=== PATIENT | male | born 1945 | race Two or more races ===

== ENCOUNTER 2019-04-26 12:00 | Inpatient (IN) ==
[2019-04-26 12:20] VITALS: BMI 26.1
--- NOTE | 2019-04-26 13:05 | DR.EXTPAIN ---
HPI - Time seen Time seen: 13:01 - Complaint/Symptoms Chief Complaint Doctor Comments: Patient state he has been passing out at home for the past two days. States he gets diaphoretic, weak, sweaty and pass out. States he thought his sugar was low and he eat some candy and he feels better. states he is taking Novolin N 28 units and he thinks it peak at the wrong time and his sugar gets low and he passes out. states similar episode happened today and two days ago where he passed out and ate candy and felt better. He states he is a diabetic and had By-pass 2000 and stents x2 this year. States he thought he had the flu for seven days now and he has been taking Amoxicillin 875mg bid and continues to cough. He has asthma and wheeze at times and uses albuterol for SOB. He was taking insulin 28 units bid but he stopped the evening dose because he felt it was to much. states his glucose usually run around 280 to 300 range. He denies tobacco or alcohol use. States he do not have a local doctor. States he wants to switch his insulin to a long acting insulin like Lantus. Chief Complaint:: patient stated he has been passing out at home and he thinks the insulin may be wrong or he thinks he is having TIAs. pt also thinks he has the flu he has been taking amoxcillian 875 but he still fells bad. - Nurses notes reviewed Nurses Notes Review: Yes - Source History Provided: Patient - Mode of arrival Mode of Arrival: Ambulatory - Timing Onset of Chief Complaint: 04/24/19 - Context History of: Arthritis - Associated signs and symptoms Associated Signs and Symptoms: Weakness, Fever, Cough PMH - PMH Past Medical History: Yes Past Medical History: Diabetes, [place] Past Surgical History: Yes Surgical History: Angioplasty/Stents - Family History History of Family Medical Conditions: No - Social History Does patient currently use any type of tobacco product: No Have you used tobacco products in the last 12 months: No Type of Tobacco Use: None Does any household member use tobacco: No Alcohol Use: None Do you use any recreational Drugs:: No Lives With: Family Lives Where: Home - infectious screening In the last 2 months have you had wt loss of >10#?: NO Have you had fever, night sweats or hemotysis?: No Have you traveled outside the country in the last 6 months?: No Isolation: Standard ROS - Review of Systems Constitutional: No Symptoms Reported, Fever, Weakness Eyes: No Symptoms Reported ENTM: No Symptoms Reported Respiratoy: No Symptoms Reported, Productive Cough (yellow sputum), Short of Breath Cardiovascular: No Symptoms Reported. negative: See HPI, Chest Pain, Edema, Palpitations, Syncope, Cyanosis, Skin Mottling, Other Gastrointestinal/Abdominal: No Symptoms Reported Genitourinary: No Symptoms Reported Neurological: No Symptoms Reported Musculoskeletal: No Symptoms Reported Integumentary: No Symptoms Reported Hematologic/Lymphatic: No Symptoms Reported Endocrine: No Symptoms Reported Psychiatric: No Symptoms Reported. negative: See HPI, Anxiety, Depression, Hallucinations, Excessive crying, Suicidal, Other PE - General Limitations: No Limitations General Appearance: Alert, In Distress (slight) - Head Head Exam: Normal Inspection, Atraumatic, Normocephalic - Eyes Eye exam: Normal Appearance, PERRL, EOMI. negative: Scleral Icterus - ENT ENT Exam: Normal Exam, Normal Oropharynx, Normal External Ear Exam, Mucous Membranes Moist, TM's Normal Bilaterally - Neck Neck Exam: Normal Inspection, Full ROM, Trachea Midline - Chest Chest Inspection: Normal Inspection, Symmetric Chest Wall Rise - Respiratory Respiratory Exam: Prolonged Expiratory Phase Respiratory Exam: Right Rales (right basilar rales), Lower Rales - Cardiovascular Cardiovascular Exam: Regular Rate, Normal Rhythm, Normal Heart Sounds, Systolic Murmur - Abdominal Exam Abdominal Exam: Normal Inspection, Normal Bowel Sounds, Soft. negative: Distention, Tenderness, Guarding, Rebound, Rigidity, Dimnished Bowel Sounds, Hyperactive Bowel Sounds, Hypoactive Bowel Sounds, Organomegaly, Trauma, Incision, Ascites, Mass, Bruit, Pulsatile Mass, Hernia, Other Abdominal Tenderness: negative: RUQ, RLQ, LUQ, LLQ, Epigastrium, Suprapubic, Diffuse, Mild, Moderate, Severe, Other - Extremities Extremities Exam: Normal Inspection, Full ROM, Normal Capillary Refill. negative: Tenderness, Edema, Joint Swelling, Calf Tenderness, Other - Upper Extremities Shoulder Exam: Normal Inspection, Full ROM. negative: Tenderness, Swelling, Abrasion, Laceration, Ecchymosis, Deformity, Crepitus, Dislocation, Erythema, Tenderness over AC Joint, Other Arm Exam: Normal Inspection, Full ROM. negative: Tenderness, Swelling, Abrasion, Laceration, Ecchymosis, Deformity, Crepitus, Erythema, Other Elbow Exam: Normal Inspection, Full ROM. negative: Tenderness, Swelling, Abrasion, Laceration, Ecchymosis, Deformity, Crepitus, Dislocation, Erythema, Effusion, Pain w/ pronation, Pain w/ Spuination, Tenderness over Radial Head, Other Forearm Exam: Normal Inspection, Full ROM. negative: Tenderness, Swelling, Abrasion, Laceration, Ecchymosis, Deformity, Crepitus, Erythema, Dislocation, Other Hand Exam: Normal Inspection, Full ROM. negative: Tenderness, Swelling, Abrasion, Laceration, Ecchymosis, Skin Avulsion, Deformity, Crepitus, Erythema, Dislocation, Amputation, Nail Avulsion, Subungual Hematoma, Other Neuromotor Exam: Normal Exam Neurosensory Exam: Normal Exam Hand Tendon Exam: Flexor Digitorium Profundus (Location) (normal) Upper Ext. Vascular Exam: Capillary Refill (normal) - Lower Extremities Hip/Pelvis Exam: Normal Inspection, Full ROM Upper Leg Exam: Normal Inspection, Full ROM Knee Exam: Normal Inspection, Full ROM, Crepitus. negative: Tenderness, Swelling, Abrasion, Laceration, Ecchymosis, Deformity, Dislocation, Erythema, Effusion, Anterior Drawer Sign, Posterior Draw Sign, Pain with Valgus, Laxity with Valgus, Pain with Varus, Knee Extension Intact, Other Lower Leg Exam: Normal Inspection, Full ROM Ankle Exam: Normal Inspection, Full ROM. negative: Tenderness, Swelling, Abrasion, Laceration, Ecchymosis, Deformity, Crepitus, Dislocation, Erythema, Tenderness over talofibular lig, Anterior Draw Sign, Other Foot/Toe Exam: Normal Inspection, Full ROM. negative: Tenderness, Swelling, Abrasion, Laceration, Ecchymosis, Deformity, Crepitus, Dislocation, Erythema, Amputation, Puncture Wound, Foreign Body, Calcaneal Tenderness, Nail Avulsion, Other Neurovascular/Tendon Exam: Normal Capillary Refill Gait Exam: Observed and Normal - Back Back Exam: Normal Inspection, Full ROM - Neurological Neurological Exam: Alert, Oriented X3, CN II-XII Intact, Normal Gait, Reflexes Normal - Psychiatric Psychiatric Exam: Normal Affect, Normal Mood - Skin Skin Exam: Warm, Dry, Intact, Normal Color Type of Lesion: negative: Rash, Abscess, Laceration, Foreign Body, Bite/Sting, Abrasion, Other Distribution: negative: Generalized, Involves Palms/Soles, Head, Face, Neck, Thorax, Chest, Back, Abdomen, Genitals, LUE, LLE, RUE, RLE, Other Description: negative: Size, Tenderness, Erythematous, Swelling, Macular, Papular, Vesicular, Blisters, Cofluent, Bullous, Petechial, Purpuric, Urticarial, Crusting, Discharge, Fluctuant, Indurated, Other - Vital Signs Vitals: Temperature 99.9 F Pulse Rate 83 Respiratory Rate 24 Blood Pressure 123/62 O2 Sat by Pulse Oximetry 93 Course - Reevaluation 1st: Improved - Consultation Called: 16:09 Call Returned: 16:09 (Dr. Zavala to admit) - Education/Counseling Education/Counseling: Patient, Family Educated On: Treatment, Diagnosis, Needs for Follow Up ROR - Labs Reviewed Laboratory Results Reviewed?: Yes (all labs and x-ray results reviewed and discussed with patient) Result Diagrams: 04/26/19 12:45 04/26/19 12:45 - Other Results Comments: CT head: No acute intracranial process identified. - XRAY XRAY Interpreted by: Radiologist (CT head: No acute intracranial process identified), Both (CTA chest: No visible pulmonary embolism. Interstitial lung disease or infection.) XRAY Findings: CXR: Postsurgical findings. Mild bibasal findings consistent with atelect - EKG Rate: 85 [place]: Normal Rhythm: NSR Hypertrophy: LAE ST: Old, Inf, Infarct - Labs Reviewed Laboratory: WBC 6.5 X10^3/uL (3.6-10.0) 04/26/19 12:45 RBC 4.34 X10^6/uL (4.7-6.0) L 04/26/19 12:45 Hgb 13.6 g/dL (13.5-18.0) 04/26/19 12:45 Hct 39.7 % (42.0-54.0) L 04/26/19 12:45 MCV 91.6 fL (80.0-100.0) 04/26/19 12:45 MCH 31.4 pg (27.0-34.0) 04/26/19 12:45 MCHC 34.3 g/dL (33.0-35.0) 04/26/19 12:45 RDW 13.5 % (11.6-16.5) 04/26/19 12:45 Plt Count 194 X10^3/uL (150.0-450.0) 04/26/19 12:45 MPV 8.4 fL (7.4-11.0) 04/26/19 12:45 Neut % (Auto) 75.6 % (42.0-75.0) H 04/26/19 12:45 Lymph % (Auto) 15.5 % (21.0-51.0) L 04/26/19 12:45 [place] % (Auto) 7.6 % (0.0-13.0) 04/26/19 12:45 Eos % (Auto) 0.7 % (0.9-2.9) L 04/26/19 12:45 Baso % (Auto) 0.6 % (0.2-1.0) 04/26/19 12:45 Neut # (Auto) 4.9 x10^3/uL (2.2-4.8) H 04/26/19 12:45 Lymph # (Auto) 1.0 X10^3/uL (1.3-2.9) L 04/26/19 12:45 [place] # (Auto) 0.5 x10^3/uL (0.3-0.8) 04/26/19 12:45 Eos # (Auto) 0.0 x10^3/uL (0.0-0.2) 04/26/19 12:45 Baso # (Auto) 0.0 X10^3/uL (0.0-0.1) 04/26/19 12:45 Absolute Nucleated RBC 0.0 /100WBC 04/26/19 12:45 PT 13.7 SECONDS (11.8-14.3) 04/26/19 12:45 INR Target Range - 04/26/19 12:45 INR 1.09 (0.8-1.3) 04/26/19 12:45 APTT 34.0 SECONDS (22.9-36.5) 04/26/19 12:45 PTT Comment - 04/26/19 12:45 D-Dimer 739 ng/mL (0-400) H* 04/26/19 12:45 Sodium 130 mmol/L (136-145) L 04/26/19 12:45 Corrected Sodium 134 mmol/L (136-145) L 04/26/19 12:45 Potassium 4.2 mmol/L (3.5-5.1) 04/26/19 12:45 Chloride 98 mmol/L (98-107) 04/26/19 12:45 Carbon Dioxide 25.2 mmol/L (21-32) 04/26/19 12:45 BUN 16 mg/dL (7-18) 04/26/19 12:45 Creatinine 1.16 mg/dL (0.70-1.30) 04/26/19 12:45 Est GFR (MDRD) Af Amer > 60 (>60) 04/26/19 12:45 Est GFR (MDRD) Non-Af > 60 (>60) 04/26/19 12:45 Glucose 246 mg/dL (65-99) H 04/26/19 12:45 Lactic Acid 1.1 mmol/L (0.4-2.0) 04/26/19 12:45 Calcium 8.0 mg/dL (8.5-10.1) L 04/26/19 12:45 Corrected Calcium 9.0 mg/dL (8.5-10.1) 04/26/19 12:45 Magnesium 1.9 mg/dL (1.7-2.9) 04/26/19 12:45 Total Bilirubin 1.00 mg/dL (0.2-1.0) 04/26/19 12:45 AST 44 Units/L (15-37) H 04/26/19 12:45 ALT 34 Units/L (12-78) 04/26/19 12:45 Alkaline Phosphatase 71 Units/L (46-116) 04/26/19 12:45 Creatine Kinase 480 Units/L (39-308) H 04/26/19 12:45 CK-MB (CK-2) 2.1 ng/mL (0-4.0) 04/26/19 12:45 CK/CKMB % Calc 0.4 % (<4) 04/26/19 12:45 Troponin I 0.07 ng/mL (0-1.5) 04/26/19 12:45 Total Protein 7.2 g/dL (6.4-8.2) 04/26/19 12:45 Albumin 2.8 g/dL (3.4-5.0) L 04/26/19 12:45 Globulin 4.4 g/dL (2.5-4.5) 04/26/19 12:45 Albumin/Globulin Ratio 0.6 Ratio (1.1-2.1) L 04/26/19 12:45 Opioid - Opioid Risk Tool Age (Erasmo box if 16-45): No History of Preadolescent Sexual Abuse: No Total: 0 Total Score Risk Category: Low Risk - Diagnosis Discharge Problem: Hyponatremia, Pulmonary fibrosis, History of asthma Syncope Qualifiers: Encounter type: initial encounter Pneumonia Qualifiers: Aspiration pneumonia type: unspecified Diabetes mellitus Qualifiers: Diabetes mellitus type: type 1 Coronary artery disease Qualifiers: Coronary Disease-Associated Artery/Lesion type: bypass graft, autologous vein - Discharge Plan Disposition: ADMITTED INPATIENT Condition: Stable - Follow ups/Referrals Follow ups/Referrals: NFD,None [Primary Care Provider] - 3 days - Instructions
[2019-04-26 13:09] LABS: BASOPHILS % (AUTO) 0.6 % (0.2-1.0); EOSINOPHILS % (AUTO) 0.7 % (0.9-2.9); HEMATOCRIT 39.7 % (42.0-54.0); HEMOGLOBIN 13.6 g/dL (13.5-18.0); LYMPHOCYTES % (AUTO) 15.5 % (21.0-51.0); MEAN CORPUSCULAR HEMOGLOBIN 31.4 pg (27.0-34.0); MEAN CORPUSCULAR HGB CONC 34.3 g/dL (33.0-35.0); MEAN CORPUSCULAR VOLUME 91.6 fL (80.0-100.0); MEAN PLATELET VOLUME 8.4 fL (7.4-11.0); MONOCYTES # (AUTO) 0.5 x10^3/uL (0.3-0.8); MONOCYTES % (AUTO) 7.6 % (0.0-13.0); NEUTROPHILS # (AUTO) 4.9 x10^3/uL (2.2-4.8); NEUTROPHILS % (AUTO) 75.6 % (42.0-75.0); PLATELET COUNT 194 X10^3/uL (150.0-450.0); RED BLOOD COUNT 4.34 X10^6/uL (4.7-6.0); RED CELL DISTRIBUTION WIDTH 13.5 % (11.6-16.5); WHITE BLOOD COUNT 6.5 X10^3/uL (3.6-10.0)
[2019-04-26 13:27] LABS: BLOOD UREA NITROGEN 16 mg/dL (7-18); CARBON DIOXIDE 25.2 mmol/L (21-32); CHLORIDE 98 mmol/L (98-107); COR NA(FOR HYPERGLY) 134 mmol/L (136-145); CREATININE 1.16 mg/dL (0.70-1.30); SODIUM 130 mmol/L (136-145); TROPONIN I 0.07 ng/mL (0-1.5); eGFR NON BLACK RACES > 60 (>60)
[2019-04-26] MEDS: NS 1000 ML 1,000 ML IV SCH (13:28)
[2019-04-26 13:32] LABS: ALANINE AMINOTRANSFERASE 34 Units/L (12-78); ALBUMIN 2.8 g/dL (3.4-5.0); ALKALINE PHOSPHATASE 71 Units/L (46-116); ASPARTATE AMINO TRANSFERASE 44 Units/L (15-37); CKMB % 0.4 % (<4); CREATINE KINASE 480 Units/L (39-308); CREATINE KINASE MB 2.1 ng/mL (0-4.0); MAGNESIUM 1.9 mg/dL (1.7-2.9); TOTAL PROTEIN 7.2 g/dL (6.4-8.2)
--- NOTE | 2019-04-26 13:35 | RAD ---
Examination: Portable AP chestHistory: Chest painFindings: The heart is not significantly enlarged. Sternal wires are present. There are increased indistinct interstitial densities in the lung bases which may represent minimal atelectasis or fibrosis. No pulmonary edema, pneumothorax or consolidation seen.Impression: Postsurgical findings. Mild bibasal findings consistent with subsegmental atelectasis or fibrosis.Reported By:
--- NOTE | 2019-04-26 13:37 | CT ---
HISTORY: Altered mental statusStudy: CT brain without contrastComparison: NoneTechnique:Multiple axial images of the brain were obtained from the skull base to the vertex without administration of IV contrast.Dose reduction techniques including Automated Exposure Control (AEC) and adjustment of mA and kV were utlized.Findings: No visible intracranial hemorrhage or overt acute infarct. remote left caudate lacunar infarct. No extra-axial fluid collections are seen. No ventriculomegaly or midline shift. No visible mass or mass effect. Included paranasal sinuses and mastoid air cells are aerated. Orbital contents appear intact. Skull base and calvarium appear intact.IMPRESSION: 1. No acute intracranial process identified.Reported By:
[2019-04-26 13:38] LABS: LACTIC ACID 1.1 mmol/L (0.4-2.0)
[2019-04-26] MEDS ORDERED: ROCEPHIN VIAL 1 GRAM 1 G in NS 100 ML IV + SPIKE MINIBAG* 100 ML IV ONE (14:17)
[2019-04-26] MEDS ORDERED: ROCEPHIN VIAL 1 GRAM ONE (14:24)
[2019-04-26] MEDS ORDERED: NS 100 ML IV 100 ML IV ONE (14:24)
--- NOTE | 2019-04-26 14:39 | CT ---
HISTORY: Shortness of breathStudy: CT chest with contrastComparison: Chest radiograph same dayTechnique: Multiple axial images of the chest were obtained from the thoracic inlet to the upper abdomen after the administration of IV contrast.Dose reduction techniques including Automated Exposure Control (AEC) and adjustment of mA and kV were utlized.Findings:Satisfactory opacification of the pulmonary arteries without visible pulmonary artery filling defect. Lungs show diffuse peripheral interstitial thickening/fibrosis in appear grossly clear centrally. Sequelae of CABG. Mildly prominent subcarinal 12 mm lymph node with scattered calcification. No other visible lymphadenopathy. No pleural effusion, no pericardial effusion, or pneumothorax. Limited views upper abdomen grossly unremarkable. Scattered atherosclerosis. No acute osseous finding.IMPRESSION: 1. No visible pulmonary embolism.2. Evidence of interstitial lung disease or atypical infection. Additional findings as above.Reported By:
[2019-04-26] MEDS ORDERED: TUSSIONEX PENNKINETIC SUSP PO PRN (16:12)
[2019-04-26] MEDS ORDERED: NS 1/2 1000 ML IV 1,000 ML IV SCH (17:00)
[2019-04-26 17:01] LABS: CKMB % 0.4 % (<4); TROPONIN I 0.08 ng/mL (0-1.5)
--- NOTE | 2019-04-26 17:03 | DR.H&P ---
H&P History & Physical for Day of: H&P Date: 04/26/19 Chief Complaint Chief Complaint: productive cough, dizziness Allergies Allergies Allergy/AdvReac Type Severity Reaction Status Date / Time No Known Drug Allergies Allergy Verified 04/26/19 12:12 History of Present Illness History of Present Illness: Patient is a 73y/o male with a PMH of Type 2 DM, CABG, CAD s/p PCI x 2 this year, HTN and HLD presents with one week onset of productive cough, runny nose and body aches. He has had these flu like symptoms after being exposed to his daughter who had the flu. He has been taking Augmentin. He also reports dizziness and passing out spells x 2 due to hypoglycemia. He takes Novolin N 28 units BID and reports having low blood sugars at night around 1am. He passed out twice in the last 2 days, symptoms resolved with eating candy. reports generalized weakness and decreased appetite. Patient sees cardiology, recent PCI in Jan, no significant valvular disease. Past Medical History Past Medical History: Coronary Artery Disease, Diabetes, Dyslipidemia, Hypertension and [place] Past Surgical History Surgical History: Angioplasty/Stents and CABG/Valve Surgery Social History Does patient currently use any type of tobacco product: No Have you used tobacco products in the last 12 months: No Type of Tobacco Use: None Does any household member use tobacco: No Alcohol Use: None Drug Use: Prescription Drugs Prescription drug monitoring program results: PDMP was not reviewed Medications Home Medications: No Known Drug Allergies Allergy (Verified 04/26/19 12:12) CONTINUE taking the following medications albuterol sulfate [ProAir HFA] 2 inh INHALATION QID PRN 04/26/19 [History] amoxicillin-pot clavulanate [Augmentin] 1 tab PO DAILY 04/26/19 [History] aspirin [Aspir-Low] 81 mg PO DAILY 04/26/19 [History] insulin NPH isoph U-100 human [Novolin N NPH U-100 Insulin] 30 unit SUBCUT HS 04/26/19 [History] losartan 25 mg PO DAILY 04/26/19 [History] rosuvastatin 10 mg PO DAILY 04/26/19 [History] ticagrelor [Brilinta] 90 mg PO BID 04/26/19 [History] Labs Result Diagrams: 04/26/19 12:45 04/26/19 12:45 Labs: Laboratory WBC 6.5 X10^3/uL (3.6-10.0) 04/26/19 12:45 RBC 4.34 X10^6/uL (4.7-6.0) L 04/26/19 12:45 Hgb 13.6 g/dL (13.5-18.0) 04/26/19 12:45 Hct 39.7 % (42.0-54.0) L 04/26/19 12:45 MCV 91.6 fL (80.0-100.0) 04/26/19 12:45 MCH 31.4 pg (27.0-34.0) 04/26/19 12:45 MCHC 34.3 g/dL (33.0-35.0) 04/26/19 12:45 RDW 13.5 % (11.6-16.5) 04/26/19 12:45 Plt Count 194 X10^3/uL (150.0-450.0) 04/26/19 12:45 MPV 8.4 fL (7.4-11.0) 04/26/19 12:45 Neut % (Auto) 75.6 % (42.0-75.0) H 04/26/19 12:45 Lymph % (Auto) 15.5 % (21.0-51.0) L 04/26/19 12:45 [place] % (Auto) 7.6 % (0.0-13.0) 04/26/19 12:45 Eos % (Auto) 0.7 % (0.9-2.9) L 04/26/19 12:45 Baso % (Auto) 0.6 % (0.2-1.0) 04/26/19 12:45 Neut # (Auto) 4.9 x10^3/uL (2.2-4.8) H 04/26/19 12:45 Lymph # (Auto) 1.0 X10^3/uL (1.3-2.9) L 04/26/19 12:45 [place] # (Auto) 0.5 x10^3/uL (0.3-0.8) 04/26/19 12:45 Eos # (Auto) 0.0 x10^3/uL (0.0-0.2) 04/26/19 12:45 Baso # (Auto) 0.0 X10^3/uL (0.0-0.1) 04/26/19 12:45 Absolute Nucleated RBC 0.0 /100WBC 04/26/19 12:45 PT 13.7 SECONDS (11.8-14.3) 04/26/19 12:45 INR Target Range - 04/26/19 12:45 INR 1.09 (0.8-1.3) 04/26/19 12:45 APTT 34.0 SECONDS (22.9-36.5) 04/26/19 12:45 PTT Comment - 04/26/19 12:45 D-Dimer 739 ng/mL (0-400) H* 04/26/19 12:45 Sodium 130 mmol/L (136-145) L 04/26/19 12:45 Corrected Sodium 134 mmol/L (136-145) L 04/26/19 12:45 Potassium 4.2 mmol/L (3.5-5.1) 04/26/19 12:45 Chloride 98 mmol/L (98-107) 04/26/19 12:45 Carbon Dioxide 25.2 mmol/L (21-32) 04/26/19 12:45 BUN 16 mg/dL (7-18) 04/26/19 12:45 Creatinine 1.16 mg/dL (0.70-1.30) 04/26/19 12:45 Est GFR (MDRD) Af Amer > 60 (>60) 04/26/19 12:45 Est GFR (MDRD) Non-Af > 60 (>60) 04/26/19 12:45 Glucose 246 mg/dL (65-99) H 04/26/19 12:45 Lactic Acid 1.1 mmol/L (0.4-2.0) 04/26/19 12:45 Calcium 8.0 mg/dL (8.5-10.1) L 04/26/19 12:45 Corrected Calcium 9.0 mg/dL (8.5-10.1) 04/26/19 12:45 Magnesium 1.9 mg/dL (1.7-2.9) 04/26/19 12:45 Total Bilirubin 1.00 mg/dL (0.2-1.0) 04/26/19 12:45 AST 44 Units/L (15-37) H 04/26/19 12:45 ALT 34 Units/L (12-78) 04/26/19 12:45 Alkaline Phosphatase 71 Units/L (46-116) 04/26/19 12:45 Creatine Kinase 480 Units/L (39-308) H 04/26/19 12:45 CK-MB (CK-2) 2.1 ng/mL (0-4.0) 04/26/19 12:45 CK/CKMB % Calc 0.4 % (<4) 04/26/19 12:45 Troponin I 0.07 ng/mL (0-1.5) 04/26/19 12:45 Total Protein 7.2 g/dL (6.4-8.2) 04/26/19 12:45 Albumin 2.8 g/dL (3.4-5.0) L 04/26/19 12:45 Globulin 4.4 g/dL (2.5-4.5) 04/26/19 12:45 Albumin/Globulin Ratio 0.6 Ratio (1.1-2.1) L 04/26/19 12:45 Review of Systems Constitutional: Fever, Weakness and Malaise Eyes: No Symptoms Reported ENT: Nose Discharge and Nose Congestion Respiratory: Cough and Sputum Cardiovascular: No Symptoms Reported Gastrointestinal: No Symptoms Reported Genitourinary: No Symptoms Reported Musculoskeletal: No Symptoms Reported Skin: No Symptoms Reported Neurological: No Symptoms Reported Physical Exam Vital Signs: Temperature 99.9 F Pulse Rate 83 Respiratory Rate 24 Blood Pressure 123/62 O2 Sat by Pulse Oximetry 93 Oriented: Normal Eyes: Normal Respiratory: RLL Rhonchi and LLL Rhonchi Cardiovascular: Normal Auscultation: Bowel Sounds: Normal Palpation: Normal Tenderness: Normal Skin: Normal Musculoskeletal: Normal Psychiatric: Normal Mood Description: Calm Affect: Normal Speech Pattern: Clear and Appropriate Assessment/Plan (1) Hypoglycemia: Status: Acute Plan: having syncopal spells, resolved with eating candy. Currently on Novolin N BID Will start lantus 10 units qHS, SSI, monitor finger sticks closely. (2) Syncope: Qualifiers: Syncope type: unspecified Qualified Code(s): R55 - Syncope and collapse Status: Acute Plan: likely due to hypoglycemia, patient on Novolin N BID Ct-head negative Trop x 1: 0.07, repeating pending, continue cardiac monitoring Start lantus 10 units qHS, SSI (3) Pneumonia: Qualifiers: Laterality: left Lung location: lower lobe of lung Pneumonia type: due to unspecified organism Qualified Code(s): J18.9 - Pneumonia, unspecified organism Status: Acute Plan: CXR suggestive of atelectasis/fibrosis. CTPE negative for PE -received Rocephin x 1, continue Levaquin, duonebs, incentive spirometry (4) Hyponatremia: Status: Acute Plan: dehydration, continue gentle hydration. Follow AM labs, TSH (5) Diabetes mellitus: Qualifiers: Diabetes mellitus type: type 2 Diabetes mellitus senior care insulin use: with extermination inspector use Diabetes mellitus complication status: without complication Qualified Code(s): E11.9 - Type 2 diabetes mellitus without complications; Z79.4 - terminal press operator (current) use of insulin Status: Acute Plan: A1C ordered (6) History of asthma: Status: Acute Plan: duonebs prn (7) Coronary artery disease: Qualifiers: Coronary Disease-Associated Artery/Lesion type: bypass graft, autologous vein Associated angina: without angina Qualified Code(s): I25.810 - Atherosclerosis of coronary artery bypass graft(s) without angina pectoris Status: Acute Plan: s/p PCI, continue asa, brilinta, statin and losartan Patient stopped taking metoprolol. Review H&P Reviewed: Yes Patient was examined?: Yes
[2019-04-26 17:19] LABS: ALANINE AMINOTRANSFERASE 32 Units/L (12-78); ALBUMIN 2.7 g/dL (3.4-5.0); ALKALINE PHOSPHATASE 68 Units/L (46-116); ASPARTATE AMINO TRANSFERASE 42 Units/L (15-37); BLOOD UREA NITROGEN 15 mg/dL (7-18); CARBON DIOXIDE 26.7 mmol/L (21-32); CHLORIDE 99 mmol/L (98-107); COR NA(FOR HYPERGLY) 133 mmol/L (136-145); CREATININE 1.16 mg/dL (0.70-1.30); SODIUM 132 mmol/L (136-145); eGFR NON BLACK RACES > 60 (>60)
[2019-04-26 17:22] LABS: TSH (3RD GENERATION) 1.216 uIU/mL (0.358-3.74)
[2019-04-26] MEDS ORDERED: SALINE 3% 15 ML NEB TX NEB ONE (17:29)
[2019-04-26] MEDS ORDERED: BUTT CREAM (COMPOUND) TOP PRN (17:46)
[2019-04-26] MEDS: DUONEB 0.5 MG/3 MG NEB SCH (18:41)
[2019-04-26] MEDS: ROBITUSSIN DM PO SCH ×2 (18:53→20:21)
[2019-04-26] MEDS: LEVAQUIN PREMIX IV 750 MG 750 MG/150 ML BAG IV SCH (18:54)
[2019-04-26] MEDS: SNACK - Diabetic Appropriate PO SCH (20:10)
[2019-04-26] MEDS: BRILINTA PO SCH (20:20)
[2019-04-26] MEDS: CRESTOR TAB 10 MG PO SCH (20:20)
[2019-04-26] MEDS ORDERED: LANTUS SC SCH (21:00)
[2019-04-26 21:30] LABS: CKMB % 0.5 % (<4); CREATINE KINASE MB 2.5 ng/mL (0-4.0); TROPONIN I 0.08 ng/mL (0-1.5)
[2019-04-27] MEDS: DUONEB 0.5 MG/3 MG NEB SCH ×5 (01:39→17:29)
[2019-04-27] MEDS ORDERED: TYLENOL 325 MG TAB PO PRN (04:21)
[2019-04-27] MEDS: NS 1000 ML 1,000 ML IV SCH ×3 (04:28→19:06)
[2019-04-27] MEDS ORDERED: TYLENOL 325 MG TAB PO ONE (04:45)
[2019-04-27] MEDS: HumuLIN R SC PRN ×4 (05:42→20:57)
[2019-04-27 06:05] LABS: BASOPHILS % (AUTO) 0.5 % (0.2-1.0); EOSINOPHILS # (AUTO) 0.1 x10^3/uL (0.0-0.2); EOSINOPHILS % (AUTO) 2.3 % (0.9-2.9); HEMATOCRIT 38.3 % (42.0-54.0); HEMOGLOBIN 13.2 g/dL (13.5-18.0); LYMPHOCYTES # (AUTO) 1.5 X10^3/uL (1.3-2.9); LYMPHOCYTES % (AUTO) 23.6 % (21.0-51.0); MEAN CORPUSCULAR HEMOGLOBIN 31.3 pg (27.0-34.0); MEAN CORPUSCULAR HGB CONC 34.5 g/dL (33.0-35.0); MEAN CORPUSCULAR VOLUME 90.8 fL (80.0-100.0); MEAN PLATELET VOLUME 8.3 fL (7.4-11.0); MONOCYTES # (AUTO) 0.5 x10^3/uL (0.3-0.8); MONOCYTES % (AUTO) 7.9 % (0.0-13.0); NEUTROPHILS # (AUTO) 4.1 x10^3/uL (2.2-4.8); NEUTROPHILS % (AUTO) 65.7 % (42.0-75.0); PLATELET COUNT 172 X10^3/uL (150.0-450.0); RED BLOOD COUNT 4.22 X10^6/uL (4.7-6.0); RED CELL DISTRIBUTION WIDTH 13.5 % (11.6-16.5); WHITE BLOOD COUNT 6.2 X10^3/uL (3.6-10.0)
--- NOTE | 2019-04-27 07:50 | RAD ---
HISTORY: Pneumonia.Study: PA and lateral chest.Comparison: Chest x-ray dated April 26, 2019. Findings:The trachea is midline. The cardiac silhouette is unremarkable. Postsurgical changes status post median sternotomy. Chronic emphysematous and interstitial lung changes. Bibasilar scarring versus atelectasis. No obvious focal consolidation, pleural effusion, or pneumothorax. The bony thorax is unremarkable. IMPRESSION: No acute cardiopulmonary disease.Reported By:
[2019-04-27 08:09] LABS: BLOOD UREA NITROGEN 13 mg/dL (7-18); CALCIUM 8.1 mg/dL (8.5-10.1); CHLORIDE 100 mmol/L (98-107); COR NA(FOR HYPERGLY) 134 mmol/L (136-145); CREATININE 1.05 mg/dL (0.70-1.30); SODIUM 131 mmol/L (136-145); eGFR NON BLACK RACES > 60 (>60)
[2019-04-27] MEDS ORDERED: LANTUS SC SCH (09:00)
[2019-04-27] MEDS ORDERED: ROCEPHIN VIAL 1 GRAM 1 G in NS 100 ML IV + SPIKE MINIBAG* 100 ML IV SCH (09:00)
[2019-04-27] MEDS: VSL#3 PO SCH (09:45)
[2019-04-27] MEDS: ASPIRIN EC 81 MG PO SCH (09:45)
[2019-04-27] MEDS: COZAAR PO SCH (09:46)
[2019-04-27] MEDS: BRILINTA PO SCH ×2 (09:47→20:45)
[2019-04-27] MEDS: ROBITUSSIN DM PO SCH ×6 (09:47→20:46)
[2019-04-27] MEDS: LEVAQUIN PREMIX IV 750 MG 750 MG/150 ML BAG IV SCH (09:48)
[2019-04-27] MEDS ORDERED: LANTUS SC ONE (09:57)
--- NOTE | 2019-04-27 13:54 | PCM.PROG ---
Progress Note Progress Note for Day of Date of Exam: 04/27/19 Subjective Subjective: Pt is feeling a little better this morning. He did spike a fever of 101F early this morning. BloodCx, Flu pcr ordered. Denies dysuria or increased urinary frequency. No other acute events overnight. Past Medical Family Social History Past Med/Fam/Surg Hx: No changes since H&P Allergies: Allergies No Known Drug Allergies Allergy (Verified 04/26/19 12:12) Review of Systems ROS: No change since H&P Vital Signs and I&O's Vital Signs: Temperature 98.7 F Pulse Rate [Left Radial] 88 Pulse Rate 85 Respiratory Rate 18 Blood Pressure [Right Arm] 120/58 Blood Pressure 159/72 O2 Sat by Pulse Oximetry 99 Intake and Output: Intake & Output 04/24/19 04/25/19 04/26/19 04/27/19 23:59 23:59 23:59 23:59 Intake Total 1560 / 1560 50 / 50 Balance 1560 / 1560 50 / 50 Physical Exam Oriented: Normal Eyes: Normal Cardiovascular: Normal Auscultation: Bowel Sounds: Normal Tenderness: Normal Skin: Normal Musculoskeletal: Normal Psychiatric: Normal Mood Description: Calm Affect: Normal Speech Pattern: Clear and Appropriate Laboratory and Diagnostics Result Diagrams: 04/27/19 05:25 04/27/19 05:25 Labs: Laboratory WBC 6.2 X10^3/uL (3.6-10.0) 04/27/19 05:25 RBC 4.22 X10^6/uL (4.7-6.0) L 04/27/19 05:25 Hgb 13.2 g/dL (13.5-18.0) L 04/27/19 05:25 Hct 38.3 % (42.0-54.0) L 04/27/19 05:25 MCV 90.8 fL (80.0-100.0) 04/27/19 05:25 MCH 31.3 pg (27.0-34.0) 04/27/19 05:25 MCHC 34.5 g/dL (33.0-35.0) 04/27/19 05:25 RDW 13.5 % (11.6-16.5) 04/27/19 05:25 Plt Count 172 X10^3/uL (150.0-450.0) 04/27/19 05:25 MPV 8.3 fL (7.4-11.0) 04/27/19 05:25 Neut % (Auto) 65.7 % (42.0-75.0) 04/27/19 05:25 Lymph % (Auto) 23.6 % (21.0-51.0) 04/27/19 05:25 [place] % (Auto) 7.9 % (0.0-13.0) 04/27/19 05:25 Eos % (Auto) 2.3 % (0.9-2.9) 04/27/19 05:25 Baso % (Auto) 0.5 % (0.2-1.0) 04/27/19 05:25 Neut # (Auto) 4.1 x10^3/uL (2.2-4.8) 04/27/19 05:25 Lymph # (Auto) 1.5 X10^3/uL (1.3-2.9) 04/27/19 05:25 [place] # (Auto) 0.5 x10^3/uL (0.3-0.8) 04/27/19 05:25 Eos # (Auto) 0.1 x10^3/uL (0.0-0.2) 04/27/19 05:25 Baso # (Auto) 0.0 X10^3/uL (0.0-0.1) 04/27/19 05:25 Absolute Nucleated RBC 0.1 /100WBC 04/27/19 05:25 PT 13.7 SECONDS (11.8-14.3) 04/26/19 12:45 INR Target Range - 04/26/19 12:45 INR 1.09 (0.8-1.3) 04/26/19 12:45 APTT 34.0 SECONDS (22.9-36.5) 04/26/19 12:45 PTT Comment - 04/26/19 12:45 D-Dimer 739 ng/mL (0-400) H* 04/26/19 12:45 Sodium 131 mmol/L (136-145) L 04/27/19 05:25 Corrected Sodium 134 mmol/L (136-145) L 04/27/19 05:25 Potassium 4.2 mmol/L (3.5-5.1) 04/27/19 05:25 Chloride 100 mmol/L (98-107) 04/27/19 05:25 Carbon Dioxide 25.0 mmol/L (21-32) 04/27/19 05:25 BUN 13 mg/dL (7-18) 04/27/19 05:25 Creatinine 1.05 mg/dL (0.70-1.30) 04/27/19 05:25 Est GFR (MDRD) Af Amer > 60 (>60) 04/27/19 05:25 Est GFR (MDRD) Non-Af > 60 (>60) 04/27/19 05:25 Glucose 239 mg/dL (65-99) H 04/27/19 05:25 Hemoglobin A1c 9.0 % 04/26/19 12:45 Lactic Acid 1.1 mmol/L (0.4-2.0) 04/26/19 12:45 Calcium 8.1 mg/dL (8.5-10.1) L 04/27/19 05:25 Corrected Calcium 9.0 mg/dL (8.5-10.1) 04/26/19 16:06 Magnesium 1.9 mg/dL (1.7-2.9) 04/26/19 12:45 Total Bilirubin 0.80 mg/dL (0.2-1.0) 04/26/19 16:06 AST 42 Units/L (15-37) H 04/26/19 16:06 ALT 32 Units/L (12-78) 04/26/19 16:06 Alkaline Phosphatase 68 Units/L (46-116) 04/26/19 16:06 Creatine Kinase 499 Units/L (39-308) H 04/26/19 21:00 CK-MB (CK-2) 2.5 ng/mL (0-4.0) 04/26/19 21:00 CK/CKMB % Calc 0.5 % (<4) 04/26/19 21:00 Troponin I 0.08 ng/mL (0-1.5) 04/26/19 21:00 Total Protein 7.0 g/dL (6.4-8.2) 04/26/19 16:06 Albumin 2.7 g/dL (3.4-5.0) L 04/26/19 16:06 Globulin 4.3 g/dL (2.5-4.5) 04/26/19 16:06 Albumin/Globulin Ratio 0.6 Ratio (1.1-2.1) L 04/26/19 16:06 TSH 3rd Generation 1.216 uIU/mL (0.358-3.74) 04/26/19 12:45 Plan (1) Hypoglycemia: Status: Acute Plan: Having syncopal spells, resolved with eating candy. Was taking Novolin N BID at home d/c on admission. Start Lantus 10 units, SSI, monitor finger sticks closely. (2) Syncope: Status: Acute Qualifiers: Syncope type: unspecified Qualified Code(s): R55 - Syncope and collapse Plan: likely due to hypoglycemia, patient on Novolin N BID Ct-head negative Trop x 1: 0.07, repeating pending, continue cardiac monitoring Start lantus 10 units qHS, SSI (3) Pneumonia: Status: Acute Qualifiers: Laterality: left Lung location: lower lobe of lung Pneumonia type: due to unspecified organism Qualified Code(s): J18.9 - Pneumonia, unspecified organism Plan: CXR suggestive of atelectasis/fibrosis. CTPE negative for PE -received Rocephin x 1, continue Levaquin, duonebs, incentive spirometry (4) Hyponatremia: Status: Acute Plan: dehydration, improving w/ gentle hydration. TSH wnl (5) Diabetes mellitus: Status: Acute Qualifiers: Diabetes mellitus complication status: without complication Diabetes mellitus retirement insulin use: with intermission coordinator use Diabetes mellitus type: type 2 Qualified Code(s): E11.9 - Type 2 diabetes mellitus without complications; Z79.4 - intermediate (current) use of insulin Plan: A1C 9 (6) History of asthma: Status: Acute Plan: duonebs prn (7) Coronary artery disease: Status: Acute Qualifiers: Associated angina: without angina Coronary Disease-Associated Artery/Lesion type: bypass graft, autologous vein Qualified Code(s): I25.810 - Atherosclerosis of coronary artery bypass graft(s) without angina pectoris Plan: s/p PCI, continue asa, brilinta, statin and losartan Patient stopped taking metoprolol.
[2019-04-27] MEDS: TAMIFLU PO SCH ×2 (14:20→20:45)
[2019-04-27] MEDS: CRESTOR TAB 10 MG PO SCH (20:45)
[2019-04-27] MEDS: SNACK - Diabetic Appropriate PO SCH (20:57)
[2019-04-28] MEDS: DUONEB 0.5 MG/3 MG NEB SCH ×2 (01:14→05:07)
[2019-04-28] MEDS: NS 1000 ML 1,000 ML IV SCH (02:41)
[2019-04-28] MEDS ORDERED: COLACE CAP 100 MG PO PRN (04:15)
[2019-04-28 06:26] LABS: BLOOD UREA NITROGEN 10 mg/dL (7-18); CALCIUM 7.7 mg/dL (8.5-10.1); CARBON DIOXIDE 23.9 mmol/L (21-32); CHLORIDE 103 mmol/L (98-107); COR NA(FOR HYPERGLY) 136 mmol/L (136-145); CREATININE 0.94 mg/dL (0.70-1.30); SODIUM 135 mmol/L (136-145); eGFR NON BLACK RACES > 60 (>60)
[2019-04-28 06:31] LABS: BASOPHILS % (AUTO) 0.3 % (0.2-1.0); EOSINOPHILS # (AUTO) 0.1 x10^3/uL (0.0-0.2); EOSINOPHILS % (AUTO) 1.9 % (0.9-2.9); HEMATOCRIT 36.5 % (42.0-54.0); HEMOGLOBIN 12.4 g/dL (13.5-18.0); LYMPHOCYTES # (AUTO) 1.5 X10^3/uL (1.3-2.9); LYMPHOCYTES % (AUTO) 21.4 % (21.0-51.0); MEAN CORPUSCULAR HEMOGLOBIN 31.2 pg (27.0-34.0); MEAN CORPUSCULAR VOLUME 91.8 fL (80.0-100.0); MEAN PLATELET VOLUME 7.9 fL (7.4-11.0); MONOCYTES # (AUTO) 0.4 x10^3/uL (0.3-0.8); MONOCYTES % (AUTO) 6.3 % (0.0-13.0); NEUTROPHILS % (AUTO) 70.1 % (42.0-75.0); PLATELET COUNT 169 X10^3/uL (150.0-450.0); RED BLOOD COUNT 3.97 X10^6/uL (4.7-6.0); RED CELL DISTRIBUTION WIDTH 13.4 % (11.6-16.5); WHITE BLOOD COUNT 7.1 X10^3/uL (3.6-10.0)
[2019-04-28] MEDS: TAMIFLU PO SCH (08:23)
[2019-04-28] MEDS: ROBITUSSIN DM PO SCH (08:23)
[2019-04-28] MEDS: LEVAQUIN PREMIX IV 750 MG 750 MG/150 ML BAG IV SCH (08:23)
[2019-04-28] MEDS: COZAAR PO SCH (08:23)
[2019-04-28] MEDS: VSL#3 PO SCH (08:24)
[2019-04-28] MEDS: BRILINTA PO SCH (08:24)
[2019-04-28] MEDS: ASPIRIN EC 81 MG PO SCH (08:25)
--- NOTE | 2019-04-28 08:59 | PCM.PROG ---
Progress Note Progress Note for Day of Date of Exam: 04/28/19 Subjective Subjective: Pt is feeling the same as yesterday. He had an elevated temperature early this morning of 100.2F. He tested positive for flu and was started on Tamiflu. Will add pulmicort. His glucose was still elevated yesterday. Increased Lantus to 15 units and added metformin. Pt was also constipated, added miralax and Colace. Will give milk of mag x1 dose. Will monitor sugars today. Continue Levaquin for underlying pneumonia. Past Medical Family Social History Past Med/Fam/Surg Hx: No changes since H&P Allergies: Allergies No Known Drug Allergies Allergy (Verified 04/26/19 12:12) Review of Systems ROS: No change since H&P Vital Signs and I&O's Vital Signs: Temperature 100.2 F Pulse Rate [Left Radial] 100 Pulse Rate 82 Respiratory Rate 20 Blood Pressure [Left Arm] 139/60 Blood Pressure [Right Arm] 139/63 Blood Pressure 159/72 O2 Sat by Pulse Oximetry 98 Intake and Output: Intake & Output 04/25/19 04/26/19 04/27/19 04/28/19 23:59 23:59 23:59 23:59 Intake Total 1560 / 1560 3449 / 3449 480 / 480 Output Total 1950 / 1950 700 / 700 Balance 1560 / 1560 1499 / 1499 -220 / -220 Physical Exam Oriented: Normal Eyes: Normal Cardiovascular: Normal Auscultation: Bowel Sounds: Normal Tenderness: Normal Skin: Normal Musculoskeletal: Normal Psychiatric: Normal Mood Description: Calm Affect: Normal Speech Pattern: Clear and Appropriate Laboratory and Diagnostics Result Diagrams: 04/28/19 06:09 04/28/19 06:09 Labs: 04/26/19 12:45 Blood Blood Culture - Preliminary Laboratory WBC 7.1 X10^3/uL (3.6-10.0) 04/28/19 06:09 RBC 3.97 X10^6/uL (4.7-6.0) L 04/28/19 06:09 Hgb 12.4 g/dL (13.5-18.0) L 04/28/19 06:09 Hct 36.5 % (42.0-54.0) L 04/28/19 06:09 MCV 91.8 fL (80.0-100.0) 04/28/19 06:09 MCH 31.2 pg (27.0-34.0) 04/28/19 06:09 MCHC 34.0 g/dL (33.0-35.0) 04/28/19 06:09 RDW 13.4 % (11.6-16.5) 04/28/19 06:09 Plt Count 169 X10^3/uL (150.0-450.0) 04/28/19 06:09 MPV 7.9 fL (7.4-11.0) 04/28/19 06:09 Neut % (Auto) 70.1 % (42.0-75.0) 04/28/19 06:09 Lymph % (Auto) 21.4 % (21.0-51.0) 04/28/19 06:09 [place] % (Auto) 6.3 % (0.0-13.0) 04/28/19 06:09 Eos % (Auto) 1.9 % (0.9-2.9) 04/28/19 06:09 Baso % (Auto) 0.3 % (0.2-1.0) 04/28/19 06:09 Neut # (Auto) 5.0 x10^3/uL (2.2-4.8) H 04/28/19 06:09 Lymph # (Auto) 1.5 X10^3/uL (1.3-2.9) 04/28/19 06:09 [place] # (Auto) 0.4 x10^3/uL (0.3-0.8) 04/28/19 06:09 Eos # (Auto) 0.1 x10^3/uL (0.0-0.2) 04/28/19 06:09 Baso # (Auto) 0.0 X10^3/uL (0.0-0.1) 04/28/19 06:09 Absolute Nucleated RBC 0.0 /100WBC 04/28/19 06:09 PT 13.7 SECONDS (11.8-14.3) 04/26/19 12:45 INR Target Range - 04/26/19 12:45 INR 1.09 (0.8-1.3) 04/26/19 12:45 APTT 34.0 SECONDS (22.9-36.5) 04/26/19 12:45 PTT Comment - 04/26/19 12:45 D-Dimer 739 ng/mL (0-400) H* 04/26/19 12:45 Sodium 135 mmol/L (136-145) L 04/28/19 06:09 Corrected Sodium 136 mmol/L (136-145) 04/28/19 06:09 Potassium 3.5 mmol/L (3.5-5.1) 04/28/19 06:09 Chloride 103 mmol/L (98-107) 04/28/19 06:09 Carbon Dioxide 23.9 mmol/L (21-32) 04/28/19 06:09 BUN 10 mg/dL (7-18) 04/28/19 06:09 Creatinine 0.94 mg/dL (0.70-1.30) 04/28/19 06:09 Est GFR (MDRD) Af Amer > 60 (>60) 04/28/19 06:09 Est GFR (MDRD) Non-Af > 60 (>60) 04/28/19 06:09 Glucose 136 mg/dL (65-99) H 04/28/19 06:09 Hemoglobin A1c 9.0 % 04/26/19 12:45 Lactic Acid 1.1 mmol/L (0.4-2.0) 04/26/19 12:45 Calcium 7.7 mg/dL (8.5-10.1) L 04/28/19 06:09 Corrected Calcium 9.0 mg/dL (8.5-10.1) 04/26/19 16:06 Magnesium 1.9 mg/dL (1.7-2.9) 04/26/19 12:45 Total Bilirubin 0.80 mg/dL (0.2-1.0) 04/26/19 16:06 AST 42 Units/L (15-37) H 04/26/19 16:06 ALT 32 Units/L (12-78) 04/26/19 16:06 Alkaline Phosphatase 68 Units/L (46-116) 04/26/19 16:06 Creatine Kinase 499 Units/L (39-308) H 04/26/19 21:00 CK-MB (CK-2) 2.5 ng/mL (0-4.0) 04/26/19 21:00 CK/CKMB % Calc 0.5 % (<4) 04/26/19 21:00 Troponin I 0.08 ng/mL (0-1.5) 04/26/19 21:00 Total Protein 7.0 g/dL (6.4-8.2) 04/26/19 16:06 Albumin 2.7 g/dL (3.4-5.0) L 04/26/19 16:06 Globulin 4.3 g/dL (2.5-4.5) 04/26/19 16:06 Albumin/Globulin Ratio 0.6 Ratio (1.1-2.1) L 04/26/19 16:06 TSH 3rd Generation 1.216 uIU/mL (0.358-3.74) 04/26/19 12:45 Influenza Type A (PCR) Negative (NEGATIVE) 04/27/19 13:11 Influenza Type B (PCR) Positive (NEGATIVE) A 04/27/19 13:11 Plan (1) Influenza B: Status: Acute Plan: Started Tamiflu(04/27/19) (2) Hypoglycemia: Status: Acute Plan: Lantus 15 units, SSI, monitor finger sticks closely. (3) Syncope: Status: Acute Qualifiers: Syncope type: unspecified Qualified Code(s): R55 - Syncope and collapse Plan: likely due to hypoglycemia, patient on Novolin N BID Ct-head negative Trop x 1: 0.07, repeating pending, continue cardiac monitoring Start lantus 10 units qHS, SSI (4) Pneumonia: Status: Acute Qualifiers: Laterality: left Lung location: lower lobe of lung Pneumonia type: due to unspecified organism Qualified Code(s): J18.9 - Pneumonia, unspecified organism Plan: CXR suggestive of atelectasis/fibrosis. CTPE negative for PE -received Rocephin x 1, continue Levaquin, duonebs, incentive spirometry (5) Hyponatremia: Status: Acute Plan: dehydration, improving w/ gentle hydration. TSH wnl (6) Diabetes mellitus: Status: Acute Qualifiers: Diabetes mellitus complication status: without complication Diabetes mellitus mcfp insulin use: with mcfp use Diabetes mellitus type: type 2 Qualified Code(s): E11.9 - Type 2 diabetes mellitus without complications; Z79.4 - half-way (current) use of insulin Plan: A1C 9 (7) History of asthma: Status: Acute Plan: keshia prn (8) Coronary artery disease: Status: Acute Qualifiers: Associated angina: without angina Coronary Disease-Associated Artery/Lesion type: bypass graft, autologous vein Qualified Code(s): I25.810 - Atherosclerosis of coronary artery bypass graft(s) without angina pectoris Plan: s/p PCI, continue asa, brilinta, statin and losartan Patient stopped taking metoprolol.
[2019-04-28] MEDS ORDERED: MILK OF MAGNESIA PO SCH (09:00)
[2019-04-28] MEDS ORDERED: PULMICORT NEB TX 0.5 MG NEB SCH (09:00)
[2019-04-28] MEDS ORDERED: LANTUS SC SCH (09:00)
[2019-04-28] MEDS: MIRALAX POWDER (1 DOSE 17 G) PO SCH ×2 (09:13)
[2019-04-28 11:04] VITALS: BP 117/57
--- NOTE | 2019-04-28 11:04 | W.DIS.FURT ---
Summary of Discharge Discharge Summary of Date Date of Exam: 04/28/19 Admission Date Date of Admission: 04/26/19 Admission Diagnosis Patient Problems (Updated 04/28/19 @ 08:56 by Benoit Zavala) Influenza B (Acute) J10.1 Hypoglycemia (Acute) E16.2 Syncope (Acute) R55 Pneumonia (Acute) J18.9 Diabetes mellitus (Acute) E11.9 Hyponatremia (Acute) E87.1 Pulmonary fibrosis (Acute) J84.10 History of asthma (Acute) Z87.09 Coronary artery disease (Acute) I25.10 Hospital Course: Pt is a 73y/o male with a PMH of Type 2 DM, CABG, CAD s/p PCI x 2 this year, HTN and HLD admitted after having dizziness and weakness. While inpatient he had flu like symptoms and fever, his CT chest commented on possible pneumonia and he was started on Levaquin. Flu pcr was positive for influenza B and he was started on Tamiflu. Pt was instructed to complete course of both medications on discharge. He also stated he was having "passing out" episodes at home which was attributed to hypoglycemia. He was taking Novolin N that was discontinued. While inpatient he was changed to Lantus with titration up to 15 units on discharge. Metformin was also started. On discharge patient vitals stable, physical exam unremarkable except for some crackles in lower lung bases that is resolving, pulse Ox >95%. He is instructed to monitor his blood glucose at home and follow up within pcp in 1 week. Vital Signs: Vital Signs (72 hours) 04/26/19 12:13 04/26/19 12:52 04/26/19 13:00 Temperature 99.9 F H Pulse Rate 91 H 84 85 Pulse Rate [Left Radial] Respiratory Rate 19 21 22 Blood Pressure 115/57 114/62 Blood Pressure [Left Arm] Blood Pressure [Right Arm] O2 Sat by Pulse Oximetry 96 97 99 04/26/19 13:16 04/26/19 13:30 04/26/19 13:45 Temperature Pulse Rate 80 83 78 Pulse Rate [Left Radial] Respiratory Rate 24 23 Blood Pressure 123/62 Blood Pressure [Left Arm] Blood Pressure [Right Arm] O2 Sat by Pulse Oximetry 96 93 L 94 L 04/26/19 14:11 04/26/19 14:15 04/26/19 14:30 Temperature Pulse Rate 79 79 73 Pulse Rate [Left Radial] Respiratory Rate 22 Blood Pressure Blood Pressure [Left Arm] Blood Pressure [Right Arm] O2 Sat by Pulse Oximetry 98 98 99 04/26/19 14:45 04/26/19 15:00 04/26/19 15:15 Temperature Pulse Rate 68 68 70 Pulse Rate [Left Radial] Respiratory Rate 22 21 21 Blood Pressure Blood Pressure [Left Arm] Blood Pressure [Right Arm] O2 Sat by Pulse Oximetry 90 L 95 98 04/26/19 15:30 04/26/19 15:45 04/26/19 16:00 Temperature Pulse Rate 69 64 66 Pulse Rate [Left Radial] Respiratory Rate 19 15 16 Blood Pressure Blood Pressure [Left Arm] Blood Pressure [Right Arm] O2 Sat by Pulse Oximetry 98 99 97 04/26/19 16:15 04/26/19 16:25 04/26/19 16:32 Temperature Pulse Rate 71 75 Pulse Rate [Left Radial] Respiratory Rate 17 24 Blood Pressure 159/72 Blood Pressure [Left Arm] Blood Pressure [Right Arm] O2 Sat by Pulse Oximetry 04/26/19 17:23 04/26/19 17:30 04/26/19 17:56 Temperature 98.6 F Pulse Rate 75 Pulse Rate [Left Radial] 70 Respiratory Rate 22 18 22 Blood Pressure 159/72 Blood Pressure [Left Arm] Blood Pressure [Right Arm] 142/68 O2 Sat by Pulse Oximetry 99 99 04/26/19 19:00 04/26/19 19:16 04/26/19 19:30 Temperature Pulse Rate 71 74 72 Pulse Rate [Left Radial] Respiratory Rate Blood Pressure Blood Pressure [Left Arm] Blood Pressure [Right Arm] O2 Sat by Pulse Oximetry 100 100 100 04/26/19 20:00 04/27/19 00:00 04/27/19 04:00 Temperature 99.0 F 99.2 F 101.7 F H Pulse Rate Pulse Rate [Left Radial] 75 79 96 H Respiratory Rate 18 20 18 Blood Pressure Blood Pressure [Left Arm] Blood Pressure [Right Arm] 164/73 152/78 135/62 O2 Sat by Pulse Oximetry 99 99 98 04/27/19 04:50 04/27/19 05:41 04/27/19 05:50 Temperature 100.0 F H Pulse Rate Pulse Rate [Left Radial] Respiratory Rate 18 18 Blood Pressure Blood Pressure [Left Arm] Blood Pressure [Right Arm] O2 Sat by Pulse Oximetry 04/27/19 05:52 04/27/19 07:43 04/27/19 12:00 Temperature 98.7 F 98.4 F Pulse Rate 76 Pulse Rate [Left Radial] 88 79 Respiratory Rate 18 18 Blood Pressure Blood Pressure [Left Arm] Blood Pressure [Right Arm] 120/58 132/60 O2 Sat by Pulse Oximetry 100 97 98 04/27/19 12:10 04/27/19 16:00 04/27/19 20:00 Temperature 98.8 F 98.6 F Pulse Rate 85 Pulse Rate [Left Radial] 76 89 Respiratory Rate 18 18 Blood Pressure Blood Pressure [Left Arm] 154/65 Blood Pressure [Right Arm] 139/63 O2 Sat by Pulse Oximetry 99 99 98 04/27/19 20:23 04/28/19 00:00 04/28/19 04:00 Temperature 98.9 F 100.2 F H Pulse Rate 82 Pulse Rate [Left Radial] 83 100 H Respiratory Rate 20 20 Blood Pressure Blood Pressure [Left Arm] 154/67 139/60 Blood Pressure [Right Arm] O2 Sat by Pulse Oximetry 97 98 98 04/28/19 08:00 Temperature 98.9 F Pulse Rate Pulse Rate [Left Radial] 99 H Respiratory Rate 18 Blood Pressure Blood Pressure [Left Arm] 117/57 Blood Pressure [Right Arm] O2 Sat by Pulse Oximetry 97 Labs: Laboratory Last Values WBC 7.1 X10^3/uL (3.6-10.0) 04/28/19 06:09 RBC 3.97 X10^6/uL (4.7-6.0) L 04/28/19 06:09 Hgb 12.4 g/dL (13.5-18.0) L 04/28/19 06:09 Hct 36.5 % (42.0-54.0) L 04/28/19 06:09 MCV 91.8 fL (80.0-100.0) 04/28/19 06:09 MCH 31.2 pg (27.0-34.0) 04/28/19 06:09 MCHC 34.0 g/dL (33.0-35.0) 04/28/19 06:09 RDW 13.4 % (11.6-16.5) 04/28/19 06:09 Plt Count 169 X10^3/uL (150.0-450.0) 04/28/19 06:09 MPV 7.9 fL (7.4-11.0) 04/28/19 06:09 Neut % (Auto) 70.1 % (42.0-75.0) 04/28/19 06:09 Lymph % (Auto) 21.4 % (21.0-51.0) 04/28/19 06:09 [place] % (Auto) 6.3 % (0.0-13.0) 04/28/19 06:09 Eos % (Auto) 1.9 % (0.9-2.9) 04/28/19 06:09 Baso % (Auto) 0.3 % (0.2-1.0) 04/28/19 06:09 Neut # (Auto) 5.0 x10^3/uL (2.2-4.8) H 04/28/19 06:09 Lymph # (Auto) 1.5 X10^3/uL (1.3-2.9) 04/28/19 06:09 [place] # (Auto) 0.4 x10^3/uL (0.3-0.8) 04/28/19 06:09 Eos # (Auto) 0.1 x10^3/uL (0.0-0.2) 04/28/19 06:09 Baso # (Auto) 0.0 X10^3/uL (0.0-0.1) 04/28/19 06:09 Absolute Nucleated RBC 0.0 /100WBC 04/28/19 06:09 PT 13.7 SECONDS (11.8-14.3) 04/26/19 12:45 INR Target Range - 04/26/19 12:45 INR 1.09 (0.8-1.3) 04/26/19 12:45 APTT 34.0 SECONDS (22.9-36.5) 04/26/19 12:45 PTT Comment - 04/26/19 12:45 D-Dimer 739 ng/mL (0-400) H* 04/26/19 12:45 Sodium 135 mmol/L (136-145) L 04/28/19 06:09 Corrected Sodium 136 mmol/L (136-145) 04/28/19 06:09 Potassium 3.5 mmol/L (3.5-5.1) 04/28/19 06:09 Chloride 103 mmol/L (98-107) 04/28/19 06:09 Carbon Dioxide 23.9 mmol/L (21-32) 04/28/19 06:09 BUN 10 mg/dL (7-18) 04/28/19 06:09 Creatinine 0.94 mg/dL (0.70-1.30) 04/28/19 06:09 Est GFR (MDRD) Af Amer > 60 (>60) 04/28/19 06:09 Est GFR (MDRD) Non-Af > 60 (>60) 04/28/19 06:09 Glucose 136 mg/dL (65-99) H 04/28/19 06:09 Hemoglobin A1c 9.0 % 04/26/19 12:45 Lactic Acid 1.1 mmol/L (0.4-2.0) 04/26/19 12:45 Calcium 7.7 mg/dL (8.5-10.1) L 04/28/19 06:09 Corrected Calcium 9.0 mg/dL (8.5-10.1) 04/26/19 16:06 Magnesium 1.9 mg/dL (1.7-2.9) 04/26/19 12:45 Total Bilirubin 0.80 mg/dL (0.2-1.0) 04/26/19 16:06 AST 42 Units/L (15-37) H 04/26/19 16:06 ALT 32 Units/L (12-78) 04/26/19 16:06 Alkaline Phosphatase 68 Units/L (46-116) 04/26/19 16:06 Creatine Kinase 499 Units/L (39-308) H 04/26/19 21:00 CK-MB (CK-2) 2.5 ng/mL (0-4.0) 04/26/19 21:00 CK/CKMB % Calc 0.5 % (<4) 04/26/19 21:00 Troponin I 0.08 ng/mL (0-1.5) 04/26/19 21:00 Total Protein 7.0 g/dL (6.4-8.2) 04/26/19 16:06 Albumin 2.7 g/dL (3.4-5.0) L 04/26/19 16:06 Globulin 4.3 g/dL (2.5-4.5) 04/26/19 16:06 Albumin/Globulin Ratio 0.6 Ratio (1.1-2.1) L 04/26/19 16:06 TSH 3rd Generation 1.216 uIU/mL (0.358-3.74) 04/26/19 12:45 Influenza Type A (PCR) Negative (NEGATIVE) 04/27/19 13:11 Influenza Type B (PCR) Positive (NEGATIVE) A 04/27/19 13:11 Reason For Visit: PNEUMONIA,SYNCOPE,DIABETES MELLITUS, CAD, Discharge Date Discharge Date: 04/28/19 Discharge Diagnosis All Active Problems (Updated 04/28/19 @ 08:56 by Benoit Zavala) Influenza B (Acute) Hypoglycemia (Acute) Syncope (Acute) Pneumonia (Acute) Diabetes mellitus (Acute) Hyponatremia (Acute) Pulmonary fibrosis (Acute) History of asthma (Acute) Coronary artery disease (Acute) Plan of Treatment: Continue with present treatment and follow up plan. Pt is to keep follow up appointment as instructed and take medications as ordered. Discharge Medications Discharge Medications: No Known Drug Allergies Allergy (Verified 04/26/19 12:12) CONTINUE taking the following medications Brilinta 90 mg PO BID 04/26/19 [History] albuterol sulfate [ProAir HFA] 2 inh INHALATION QID PRN 04/26/19 [History] aspirin [Aspir-Low] 81 mg PO DAILY 04/26/19 [History] losartan 25 mg PO DAILY 04/26/19 [History] rosuvastatin 10 mg PO HS 04/26/19 [History] New Prescriptions insulin glargine [Lantus U-100 Insulin] 15 units SC QAM 30 Days #1 box 04/28/19 [Rx] levofloxacin [Levaquin] 750 mg PO Q24H 4 Days #4 tab 04/28/19 [Rx] metformin 500 mg PO BIDWM 30 Days #60 tab 04/28/19 [Rx] oseltamivir 75 mg PO BID 4 Days #8 cap 04/28/19 [Rx] Follow up and Referral Follow Up: 1 Week Discharge Disposition Discharge Disposition: Home
[2019-04-28] MEDS: HumuLIN R SC PRN (11:30)
[2019-04-28] MEDS ORDERED: GLUCOPHAGE PO SCH (17:00)
[2019-04-28] MEDS ORDERED: COLACE CAP 100 MG PO SCH (21:00)
== END 2019-04-28 11:50 | disposition home or self-care (01) | DRG 194 ==
LOC: MED/SURG 12:11 → ER 12:11 → OBSVTOIN 16:10 → MED/SURG 17:23
PROVIDERS: ADMIT Family Medicine; ATTEND Family Medicine
DX: R94.31 Abnormal electrocardiogram [ECG] [EKG]; R55 Syncope and collapse; R42 Dizziness and giddiness; Z79.4 Long term (current) use of insulin; J18.9 Pneumonia, unspecified organism; E11.65 Type 2 diabetes mellitus with hyperglycemia; R41.82 Altered mental status, unspecified; I25.810 Atherosclerosis of coronary artery bypass graft(s) without angina pectoris; E11.649 Type 2 diabetes mellitus with hypoglycemia without coma; Z87.09 Personal history of other diseases of the respiratory system; J10.1 Influenza due to other identified influenza virus with other respiratory manifestations; E87.1 Hypo-osmolality and hyponatremia
CPT/HCPCS: 36415; 70450; 71010; 71020; 71045; 71046; 71275; 80048; 80053; 82550; 82553; 83036; 83605; 83735; 84443; 84484; 85025; 85378; 85610; 85730; 87040; 87502; 93005; 94640; 94760; 96365; 96367; 96374; 99284; A4222; G9035; J0696; J1815; J1956; J3490; J7030; J7050; J7620